=== PATIENT | male | born 1955 | race Caucasian/White ===

== ENCOUNTER → 2016-07-02 | Outpatient (CLI) | payer OTHER ==
[~2016-07-02] MED LIST: CORGARD PO; GLUCOPHAGE XR500 MG PO; PRILOSEC PO; PROTONIX PO; ROBITUSSIN A-C-S1 ML PO
[2016-07-02 09:04] LABS: BASOPHIL# 0.1 X10e3 (0-0.3); BASOPHIL% 0.7 % (0-2.5); EOSINOPHIL# 0.2 X10e3 (0-0.7); EOSINOPHIL% 1.7 % (0.0-7.0); HEMATOCRIT 39.2 % (38.0-50.0); HEMOGLOBIN 13.5 gm/dL (13.0-16.0); LYMPHOCYTE% 10.7 % (17.0-45.0); MEAN CORPUSCULAR HEMOGLOBIN 29.7 PG (28-34); MEAN CORPUSCULAR HGB CONC 34.5 g/dL (30-36); MEAN PLATELET VOLUME 7.2 FL (6.5-11.5); MONOCYTE# 0.8 X10e3 (0-1.0); NEUTROPHIL% 77.9 % (40-75); PLATELET COUNT 156 X10e3 (140-420); RED BLOOD COUNT 4.56 X10e (3.90-5.60); RED CELL DISTRIBUTION WIDTH 13.4 % (11.0-15.5); WHITE BLOOD COUNT 8.9 X10e3 (4.0-10.5)
[2016-07-02 09:06] LABS: DIFF IND NO
[2016-07-02 10:35] LABS: ALKALINE PHOSPHATASE 78 U/L (32-92); ALT (SGPT) 17 U/L (10-40); AST (SGOT) 17 U/L (10-42); BILIRUBIN,TOTAL 0.9 mg/dL (0.2-2.0); BLOOD UREA NITROGEN 15 mg/dL (9-23); BUN/CREATININE RATIO 18.75; CALCIUM SERUM 8.4 mg/dL (8.4-10.2); CARBON DIOXIDE 25 mmol/L (22-31); CHLORIDE 108 mmol/L (100-111); CHOLESTEROL 181 mg/dL (0-200); CREATININE SERUM 0.8 mg/dL (0.6-1.4); GLOM FILT RATE Estimated ABOVE60 mL/min (>60); GLUCOSE FASTING 285 mg/dL (70-110); MAGNESIUM 1.5 mg/dL (1.6-3.0); POTASSIUM 3.7 mmol/L (3.5-5.1); PROTEIN TOTAL SERUM 5.5 g/dL (6.0-8.3); SODIUM 140 mmol/L (135-145); TRIGLYCERIDES 263 mg/dL (10-160)
== END | disposition home or self-care (01) ==
LOC: CTPL 08:13
PROVIDERS: Surgery
DX: Z48.23 Encounter for aftercare following liver transplant (principal); K73.2 Chronic active hepatitis, not elsewhere classified; Z13.1 Encounter for screening for diabetes mellitus; Z94.4 Liver transplant status; Z79.891 Long term (current) use of opiate analgesic
CPT/HCPCS: 36415; 80053; 80197; 82465; 83036; 83735; 84478; 85025

== ENCOUNTER → 2016-09-11 | Outpatient (CLI) | payer OTHER ==
[2016-09-11 08:24] LABS: BASOPHIL# 0.1 X10e3 (0-0.3); BASOPHIL% 0.9 % (0-2.5); EOSINOPHIL# 0.2 X10e3 (0-0.7); HEMATOCRIT 40.2 % (38.0-50.0); HEMOGLOBIN 13.9 gm/dL (13.0-16.0); LYMPHOCYTE# 1.2 X10e3 (1.0-3.5); LYMPHOCYTE% 17.5 % (17.0-45.0); MEAN CELL VOLUME 85.7 FL (83-96); MEAN CORPUSCULAR HEMOGLOBIN 29.6 PG (28-34); MEAN CORPUSCULAR HGB CONC 34.5 g/dL (30-36); MEAN PLATELET VOLUME 7.1 FL (6.5-11.5); MONOCYTE# 0.7 X10e3 (0-1.0); MONOCYTE% 10.1 % (3.0-12.0); NEUTROPHIL# 4.5 X10e3 (1.5-7.1); NEUTROPHIL% 68.5 % (40-75); PLATELET COUNT 147 X10e3 (140-420); RED BLOOD COUNT 4.69 X10e (3.90-5.60); RED CELL DISTRIBUTION WIDTH 13.8 % (11.0-15.5); WHITE BLOOD COUNT 6.6 X10e3 (4.0-10.5)
[2016-09-11 08:26] LABS: DIFF IND NO
[2016-09-11 09:26] LABS: ALBUMIN SERUM 3.1 g/dL (3.5-5.0); BUN/CREATININE RATIO 15.55; CALCIUM SERUM 8.4 mg/dL (8.4-10.2); CREATININE SERUM 0.9 mg/dL (0.6-1.4); GLOM FILT RATE Estimated 91.9 mL/min (>60); MAGNESIUM 1.7 mg/dL (1.6-3.0); POTASSIUM 3.8 mmol/L (3.5-5.1); PROTEIN TOTAL SERUM 5.6 g/dL (6.0-8.3)
== END | disposition home or self-care (01) ==
LOC: CTPL 08:02
PROVIDERS: Surgery
DX: Z48.23 Encounter for aftercare following liver transplant (principal); Z13.1 Encounter for screening for diabetes mellitus; T45.1X1D Poisoning by antineoplastic and immunosuppressive drugs, accidental (unintentional), subsequent encounter; E83.40 Disorders of magnesium metabolism, unspecified; Z79.891 Long term (current) use of opiate analgesic
CPT/HCPCS: 36415; 80053; 80197; 82465; 83036; 83735; 84478; 85025

== ENCOUNTER → 2016-11-13 | Outpatient (CLI) | payer OTHER ==
[2016-11-13 08:37] LABS: BASOPHIL# 0.1 X10e3 (0-0.3); BASOPHIL% 0.9 % (0-2.5); EOSINOPHIL# 0.2 X10e3 (0-0.7); EOSINOPHIL% 2.5 % (0.0-7.0); HEMATOCRIT 38.8 % (38.0-50.0); HEMOGLOBIN 13.9 gm/dL (13.0-16.0); LYMPHOCYTE# 1.3 X10e3 (1.0-3.5); LYMPHOCYTE% 17.3 % (17.0-45.0); MEAN CELL VOLUME 84.1 FL (83-96); MEAN CORPUSCULAR HEMOGLOBIN 30.1 PG (28-34); MEAN CORPUSCULAR HGB CONC 35.8 g/dL (30-36); MEAN PLATELET VOLUME 6.7 FL (6.5-11.5); MONOCYTE# 0.6 X10e3 (0-1.0); MONOCYTE% 8.2 % (3.0-12.0); NEUTROPHIL# 5.3 X10e3 (1.5-7.1); NEUTROPHIL% 71.1 % (40-75); PLATELET COUNT 179 X10e3 (140-420); RED BLOOD COUNT 4.61 X10e (3.90-5.60); RED CELL DISTRIBUTION WIDTH 13.6 % (11.0-15.5); WHITE BLOOD COUNT 7.5 X10e3 (4.0-10.5)
[2016-11-13 08:38] LABS: DIFF IND NO
[2016-11-13 09:34] LABS: ALBUMIN SERUM 3.1 g/dL (3.5-5.0); BILIRUBIN,TOTAL 0.7 mg/dL (0.2-2.0); BUN/CREATININE RATIO 15.55; CALCIUM SERUM 8.3 mg/dL (8.4-10.2); CREATININE SERUM 0.9 mg/dL (0.6-1.4); GLOM FILT RATE Estimated 91.9 mL/min (>60); MAGNESIUM 1.7 mg/dL (1.6-3.0); POTASSIUM 3.6 mmol/L (3.5-5.1); PROTEIN TOTAL SERUM 5.6 g/dL (6.0-8.3)
== END | disposition home or self-care (01) ==
LOC: CTPL 07:57
PROVIDERS: Surgery
DX: Z48.23 Encounter for aftercare following liver transplant (principal); T45.1X1D Poisoning by antineoplastic and immunosuppressive drugs, accidental (unintentional), subsequent encounter; Z13.1 Encounter for screening for diabetes mellitus; E83.40 Disorders of magnesium metabolism, unspecified; Z79.891 Long term (current) use of opiate analgesic
CPT/HCPCS: 36415; 80053; 80197; 82465; 83036; 83735; 84478; 85025